=== PATIENT | male | born 1975 | race Caucasian/White ===

== ENCOUNTER 2024-03-19 10:04 | Emergency (ER) | payer OTHER ==
[~2024-03-19] VITALS: Ht 172.7 cm; Wt 93.6 kg
[2024-03-19 10:08] VITALS: TEMP 98.5
[2024-03-19] MEDS ORDERED: NS 1,000 ML IV ONE (11:15)
[2024-03-19 11:34] LABS: COLLECTION METHOD CLEAN CATCH
[2024-03-19 11:46] LABS: BASO % 0.3 % (0.0-2.0); EOS # 0.1 K/mm3 (0.0-0.7); EOS % 0.6 % (0.0-4.0); GRAN # 6.6 K/mm3 (1.4-6.5); GRAN % 73.9 % (42.2-75.2); HEMATOCRIT 51.2 % (42.0-52.0); HEMOGLOBIN 17.7 g/dl (13.5-18.0); LYMPH # 1.8 K/mm3 (1.2-3.4); LYMPH % 20.2 % (20.0-51.0); MEAN CELL VOLUME 87 fl (80.0-100.0); MEAN CORPUSCULAR HEMOGLOBIN 30 pg (27-31); MEAN CORPUSCULAR HGB CONC 35 g/dl (33.0-37.0); MEAN PLATELET VOLUME 10.3 fl (7.4-10.4); MONO # 0.4 K/mm3 (0.1-0.6); MONO % 4.8 % (1.7-9.3); PLATELET COUNT 270 K/mm3 (130-400); RED BLOOD COUNT 5.87 M/mm3 (4.20-5.60); REDCELL DISTRIBUTION WIDTH-CV 12.1 % (11.5-14.5)
[2024-03-19 11:49] LABS: URINE APPEARANCE CLEAR (CLEAR/HAZY); URINE BLOOD NEGATIVE (NEGATIVE); URINE COLOR YELLOW (YELLOW); URINE GLUCOSE NEGATIVE (NEGATIVE); URINE KETONE NEGATIVE (NEGATIVE); URINE NITRATE NEGATIVE (NEGATIVE); URINE PROTEIN(semi-quant) NEGATIVE (NEGATIVE); URINE UROBILINOGEN 0.2 E.U/dL (0.2-1.0)
[2024-03-19 12:01] LABS: ALBUMIN 4.1 g/dL (3.5-5.0); BILIRUBIN,TOTAL 0.9 mg/dL (0.2-1.2); CALCIUM 9.6 mg/dL (8.4-10.2); CREATININE, serum 1.15 mg/dL (0.72-1.25); POTASSIUM 4.5 mEq/L (3.5-4.5); TOTAL PROTEIN 7.5 g/dl (6.2-8.1)
[2024-03-19 13:14] VITALS: BP 157/98; PULSE 72
== END 2024-03-19 13:14 | disposition home or self-care (01) ==
LOC: COL.ER 10:04
PROVIDERS: Physician Assistant
DX: E86.0 Dehydration (principal)
CPT/HCPCS: J7030

== ENCOUNTER → 2024-03-31 | Outpatient (CLI) | payer OTHER | LOC: COL.RAD 12:37 | DX: R51.9 Headache, unspecified (principal); R42 Dizziness and giddiness ==

== ENCOUNTER 2024-07-17 07:02 | Day surgery (SDC) | payer OTHER ==
[~2024-07-17] VITALS: Ht 172.7 cm; Wt 94.3 kg
[~2024-07-17 07:02] MED LIST: LR 1,000 ML IV SCH; Ondansetron 4 MG/2 ML VIAL IV PRN
[2024-07-17 08:51] VITALS: BP 139/98; PULSE 57; TEMP 97.7
[2024-07-17 09:30] VITALS: BP 120/94; PULSE 59
--- NOTE | 2024-07-17 09:30 | NUR ---
PATIENT RETURNS TO ROOM 8 PER CART AND TRANSFERS TO RECLINER WITH TWO PERSON ASSIST. IVF INFUSING AND SITE IS FREE OF REDNESS. DRINKING SPRITE.
[2024-07-17 09:45] VITALS: BP 132/83; PULSE 59
--- NOTE | 2024-07-17 09:45 | NUR ---
TOLERATED SPRITE. DR. CARR WAS IN THE ROOM AND ALL QUESTIONS WERE ANSWERED. IV DISCONTINUED. SITE IS FREE OF REDNESS.
--- NOTE | 2024-07-17 09:57 | NUR ---
DISCHARGE INSTRUCTIONS WERE GIVEN AND PATIENT VOICED UNDERSTANDING OF THESE. PATIENT IS DRESSED.
--- NOTE | 2024-07-17 09:59 | NUR ---
PATIENT DISCHARGED TO HOME DRIVEN BY FRIEND PER PRIVATE VEHICLE AND TAKEN TO CAR PER WHEELCHAIR.
== END 2024-07-17 09:59 | disposition home or self-care (01) ==
LOC: SDCO 07:02
DX: Z12.11 Encounter for screening for malignant neoplasm of colon (principal); G47.33 Obstructive sleep apnea (adult) (pediatric); Z99.89 Dependence on other enabling machines and devices
CPT/HCPCS: J2704